=== PATIENT | female | born 1965 | race African-American/Black ===

== ENCOUNTER 2017-01-10 09:40 | Observation (INO) | payer OTHER ==
[~2017-01-10] VITALS: Ht 160 cm; Wt 90.0 kg
[~2017-01-10 09:40] MED LIST: ATEN-102 PO; CYMB30CA PO; GABA800T PO; GLUCTAB PO; HYDR-2768 PO; IBUP800 PO; LISI-366 PO; LISI-593 PO; LORA-474 PO; METF500 PO; PERC10TA27 PO; PHEN37.5 PO; PREN0.01 PO; SIMV20TA PO
[2017-01-10 09:43] VITALS: BP 188/104; PULSE 84; RESP 20; TEMP 98; O2SAT 97
--- NOTE | 2017-01-10 10:21 | PD ---
HPI Chief Complaint: Chest Pain Time Seen by Provider: 10:16 Travel History International Travel<30 days: No Contact w/Intl Traveler<30days: No Traveled to known affect area: No History of Present Illness HPI Is a 51 year-old woman presents to the emergency department complaining of chest pain. She otherwise is pretty healthy. She is a history of borderline diabetes and hypertension. She states starting last night and into today she was getting chest pain intermittently. It's been worse for the past 2 hours or so. She describes it syncope and feeling in the chest and somewhat pressure- like discomfort. States it feels better when she rubs her hold suggest. 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 No GI symptoms. She does have some shortness of breath when the pain comes on. No history of GERD or reflux, no gallbladder problems. No tobacco use. She had similar symptoms about a month or so ago but that resolved on their own. Last cardiac workup she thinks was around 2001 with a treadmill stress test. History Past Medical History Narrative Medical Borderline diabetes Hypertension Influenza Vaccination: Yes LMP: 2 months ago Menopausal: Yes : 3 Para: 3 Social History Alcohol Use: Yes (rare) Tobacco Use: No Allergies-Medications (Allergen,Severity, Reaction): Coded Allergies: No Known Allergies (Unverified , 01/10/17) Reported Meds & Prescriptions Reported Meds & Active Scripts Active Reported Atenolol 100 Mg Tab 100 Mg PO BID Lisinopril 40 Mg Tab 40 Mg PO DAILY Perico Aspirin EC Low Dose (Aspirin) 81 Mg Tabdr Metformin (Metformin HCl) 500 Mg Tab 500 Mg PO BIDPC With meals Gabapentin 800 Mg Tab 800 Mg PO TID Review of Systems Except as stated in HPI: all other systems reviewed are Neg Physical Exam Narrative GENERAL: Well-appearing 51 year-old woman, no acute distress. SKIN: Warm and dry. HEAD: Atraumatic. Normocephalic. EYES: Pupils equal and round. No scleral icterus. No injection or drainage. ENT: No nasal bleeding or discharge. Mucous membranes pink and moist. NECK: Trachea midline. No JVD. CARDIOVASCULAR: Regular rate and rhythm. No murmur appreciated. RESPIRATORY: No accessory muscle use. Clear to auscultation. Breath sounds equal bilaterally. GASTROINTESTINAL: Abdomen soft, non-tender, nondistended. Hepatic and splenic margins not palpable. No right upper quadrant tenderness. Negative Justice's. MUSCULOSKELETAL: No obvious deformities. No clubbing. No cyanosis. No edema. NEUROLOGICAL: Awake and alert. No obvious cranial nerve deficits. Motor grossly within normal limits. Normal speech. PSYCHIATRIC: Appropriate mood and affect; insight and judgment normal. Data Data Last Documented VS Vital Signs Date Time Temp Pulse Resp B/P Pulse Ox O2 Delivery O2 Flow Rate FiO2 01/10/17 12:00 67 16 143/84 97 Room Air 01/10/17 09:43 98.0 Orders Electrocardiogram (01/10/17 10:16) Complete Blood Count With Diff (01/10/17 10:16) Comprehensive Metabolic Panel (01/10/17 10:16) Magnesium (Mg) (01/10/17 10:16) Prothrombin Time / Inr (Pt) (01/10/17 10:16) Act Partial Throm Time (Ptt) (01/10/17 10:16) Troponin I (01/10/17 10:16) Lipase (01/10/17 10:16) Ecg Monitoring (01/10/17 10:16) Iv Access Insert/Monitor (01/10/17 10:16) Oximetry (01/10/17 10:16) Oxygen Administration (01/10/17 10:16) Aspirin Chew (Aspirin Chew) (01/10/17 10:30) Sodium Chloride 0.9% Flush (Ns Flush) (01/10/17 10:30) Sodium Chlorid 0.9% 500 Ml Inj (Ns 500 M (01/10/17 10:30) Chest, Pa & Lat (01/10/17 10:16) Labs Laboratory Tests Test 01/10/17 01/10/17 10:10 11:20 White Blood Count 10.2 TH/MM3 Red Blood Count 4.42 MIL/MM3 Hemoglobin 12.3 GM/DL Hematocrit 36.3 % Mean Corpuscular Volume 82.1 FL Mean Corpuscular Hemoglobin 27.9 PG Mean Corpuscular Hemoglobin 33.9 % Concent Red Cell Distribution Width 15.2 % Platelet Count 340 TH/MM3 Mean Platelet Volume 8.3 FL Neutrophils (%) (Auto) 66.3 % Lymphocytes (%) (Auto) 21.4 % Monocytes (%) (Auto) 10.1 % Eosinophils (%) (Auto) 1.6 % Basophils (%) (Auto) 0.6 % Neutrophils # (Auto) 6.8 TH/MM3 Lymphocytes # (Auto) 2.2 TH/MM3 Monocytes # (Auto) 1.0 TH/MM3 Eosinophils # (Auto) 0.2 TH/MM3 Basophils # (Auto) 0.1 TH/MM3 CBC Comment DIFF FINAL Differential Comment Sodium Level 137 MEQ/L Potassium Level 4.3 MEQ/L Chloride Level 104 MEQ/L Carbon Dioxide Level 23.3 MEQ/L Anion Gap 10 MEQ/L Blood Urea Nitrogen 10 MG/DL Creatinine 0.85 MG/DL Estimat Glomerular Filtration 85 ML/MIN Rate Random Glucose 93 MG/DL Calcium Level 8.9 MG/DL Magnesium Level 1.8 MG/DL Total Bilirubin 0.4 MG/DL Aspartate Amino Transf 19 U/L (AST/SGOT) Alanine Aminotransferase 21 U/L (ALT/SGPT) Alkaline Phosphatase 76 U/L Troponin I LESS THAN 0.02 NG/ML Total Protein 7.5 GM/DL Albumin 3.8 GM/DL Lipase 168 U/L Prothrombin Time 10.8 SEC Prothromb Time International 1.0 RATIO Ratio Activated Partial 23.1 SEC Thromboplast Time MDM Medical Decision Making Medical Screen Exam Complete: Yes Emergency Medical Condition: Yes Interpretation(s) My review of EKG: Normal sinus rhythm at a rate of 85, normal axis, normal intervals, no definite evidence of acute ischemia. LABS: CBC is unremarkable. CMP is unremarkable. Troponin is negative. Lipase is normal. Coags are unremarkable. Chest x-ray: No acute disease. Differential Diagnosis ACS, cholecystitis, pancreatitis, costochondritis, other Narrative Course Medical decision making 51 year-old woman presents to the emergency department complaining of chest pain , intermittent for the past 2 days. Not clearly exertional. Moderately concerning for ACS. EKG does not show any definite ischemia. We'll check labs , x-ray, likely recommend [id number] critic enzymes and further evaluation in the chest pain Center. No evidence of PE or dissection. Diagnosis Primary Impression: Chest pain Qualified Code: R07.1 - Chest pain on breathing Jean-Claude Odonnell MD Jan 10, 2017 10:21 Qualified Code: R07.1 - Chest pain on breathing Jean-Claude Odonnell MD Jan 10, 2017 10:21
[2017-01-10] MEDS ORDERED: ASPIRIN 81 MG CHEW TAB PO ONE (10:30)
[2017-01-10] MEDS ORDERED: SODIUM CHLORID 0.9% 500 ML INJ 500 ML IV ONE (10:30)
[2017-01-10] MEDS ORDERED: SODIUM CHLORIDE 0.9% FLUSH 5 ML FLUSH IVF PRN ×2 (10:30→12:45)
[2017-01-10 10:53] LABS: AUTOMATED NEUTROPHIL # 6.8 TH/MM3 (1.8-7.7); BASOPHIL # 0.1 TH/MM3 (0-0.2); BASOPHIL % 0.6 % (0.0-2.0); EOSINOPHIL # 0.2 TH/MM3 (0-0.4); EOSINOPHIL % 1.6 % (0.0-4.0); HEMATOCRIT 36.3 % (35.0-46.0); HEMO FLAGS DIFF FINAL; LYMPH % 21.4 % (9.0-44.0); LYMPHOCYTE # 2.2 TH/MM3 (1.0-4.8); MEAN CELL VOLUME 82.1 FL (80.0-100.0); MEAN CORPUSCULAR HEMOGLOBIN 27.9 PG (27.0-34.0); MEAN CORPUSCULAR HGB CONC 33.9 % (32.0-36.0); MONO % 10.1 % (0.0-8.0); NEUT % 66.3 % (16.0-70.0); PLATELET COUNT 340 TH/MM3 (150-450); RED BLOOD COUNT 4.42 MIL/MM3 (4.00-5.30); RED CELL DISTRIBUTION WIDTH 15.2 % (11.6-17.2); WHITE BLOOD COUNT 10.2 TH/MM3 (4.0-11.0)
[2017-01-10 11:00] VITALS: BP 151/67; PULSE 75; RESP 16; O2SAT 97
[2017-01-10 11:00] LABS: ANION GAP 10 MEQ/L (5-15); AST (GOT) 19 U/L (15-37); BICARBONATE 23.3 MEQ/L (21.0-32.0); BLOOD UREA NITROGEN 10 MG/DL (7-18); CHLORIDE 104 MEQ/L (98-107); GLOMERULAR FILTRATION RATE 85 ML/MIN (>89); MAGNESIUM 1.8 MG/DL (1.5-2.5); SODIUM (NA) 137 MEQ/L (136-145)
[2017-01-10 11:02] LABS: POTASSIUM 4.3 MEQ/L (3.5-5.1)
[2017-01-10 11:04] LABS: ALKALINE PHOSPHATASE 76 U/L (45-117); ALT (GPT) 21 U/L (10-53); TOTAL BILIRUBIN ADULT 0.4 MG/DL (0.2-1.0)
--- NOTE | 2017-01-10 11:15 | RADRPT ---
EXAM DATE/TIME: 01/10/2017 10:47 [facility] COMPARISON: No previous studies available for comparison. INDICATIONS : Chest pain for 2 days. MEDICAL HISTORY : Hypertension. SURGICAL HISTORY : None. ENCOUNTER: Initial ACUITY: 2 days PAIN SCORE: 6/10 LOCATION: Bilateral chest FINDINGS: PA and lateral views of the chest demonstrate the lungs to be symmetrically aerated without evidence of mass, infiltrate or effusion. The cardiomediastinal contours are unremarkable. Osseous structure s are intact. CONCLUSION: No acute disease. Tj Leigh MD FACR on January 10, 2017 at 11:13 Board Certified Radiologist. This report was verified electronically.
[2017-01-10] MEDS ORDERED: LISI40TA PO (11:18)
[2017-01-10] MEDS ORDERED: ASPI1TAB73 (11:18)
[2017-01-10] MEDS ORDERED: ATEN100T PO (11:18)
[2017-01-10] MEDS ORDERED: METF500T PO (11:18)
[2017-01-10] MEDS ORDERED: GABA800T PO (11:18)
[2017-01-10 11:47] LABS: PROTHROMBIN TIME - PATIENT 10.8 SEC (9.8-11.6)
[2017-01-10 11:53] LABS: APTT (PATIENT) 23.1 SEC (24.3-30.1)
[2017-01-10 12:00] VITALS: BP 143/84; PULSE 67; RESP 16; O2SAT 97
[2017-01-10 12:44] VITALS: O2SAT 97
[2017-01-10] MEDS ORDERED: ALPRAZolam 0.25 MG TAB PO PRN (12:45)
[2017-01-10] MEDS ORDERED: ACETAMINOPHEN/HYDROcodone 325 MG/7.5 MG TAB PO PRN (12:45)
[2017-01-10] MEDS ORDERED: ONDANSETRON HCL 4 MG/2 ML VIAL IV PRN (12:45)
[2017-01-10] MEDS ORDERED: ACETAMINOPHEN 500 MG CPLT PO PRN (12:45)
--- NOTE | 2017-01-10 12:51 | HHI.HP ---
HPI Primary Care Physician No Primary Care Physician Chief Complaint Right sided chest pain History of Present Illness This is a 51-year-old female that presents to ED with a complaint of right- sided chest pain that has been intermittent since last evening. She has found nothing to bring on the discomfort. They last for 2-3 minutes at a time. She has found that it feels better if she presses on the area for a while. She cannot recall any trauma. Denies history of CAD. Cannot recall prior stress testing. She has history of diabetes and hypertension. Denies family history of CAD. Denies recent illnesses. Review of Systems General: Patient denies fevers, chills recent, and recent travel HEENT: Patient denies headache, sore throat, difficulty swallowing. Cardiovascular: Has the chest discomfort as mentioned above. Denies sensation of heart beating rapidly or irregularly. Denies diaphoresis. No syncope. Respiratory: Denies shortness of breath or inspirational chest discomfort. Denies coughing wheezing or hemoptysis. GI: Patient denies nausea, vomiting, diarrhea, abdominal pain, bloody stools. Musculoskeletal: Patient denies joint pain or edema. Denies calf pain or edema. Neurovascular: Patient denies numbness, tingling, weakness in extremities. Denies headache. Endocrine: Denies polyuria and polydipsia. Hematologic: Denies easy bruising. Skin: Denies rash or itching. Past Family Social History Allergies: Coded Allergies: No Known Allergies (Unverified , 01/10/17) Past Medical History Hypertension and diabetes. Denies hyperlipidemia and CAD. Past Surgical History Noncontributory Reported Medications Reported Meds & Active Scripts Active Reported Atenolol 100 Mg Tab 100 Mg PO BID Lisinopril 40 Mg Tab 40 Mg PO DAILY Perico Aspirin EC Low Dose (Aspirin) 81 Mg Tabdr Metformin (Metformin HCl) 500 Mg Tab 500 Mg PO BIDPC With meals Gabapentin 800 Mg Tab 800 Mg PO TID Active Ordered Medications Current Medications Medications (Trade) Dose Ordered Sig/Anna Route Start Time Stop Time Status Last Admin (NS Flush) 2 ml UNSCH PRN IVF 01/10/17 10:30 Family History Denies family history of CAD. Social History Lifetime nonsmoker. Occasional alcohol. Denies illicit drugs. She is . 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 Physical Exam Vital Signs Vital Signs Date Time Temp Pulse Resp B/P Pulse Ox O2 Delivery O2 Flow Rate FiO2 01/10/17 12:00 67 16 143/84 97 Room Air 01/10/17 11:00 75 16 151/67 97 Room Air 01/10/17 09:46 86 15 95 Room Air 01/10/17 09:46 98 Room Air 01/10/17 09:43 98.0 84 20 188/104 97 Room Air Physical Exam GENERAL: This is a well-nourished, well-developed patient, in no apparent distress. Patient speaks in clear complete sentences. Patient is pleasant. HEENT: Head is atraumatic and normocephalic. Neck is supple without lymphadenopathy and trachea is midline. No JVD or carotid bruits. CARDIOVASCULAR: Regular rate and rhythm without murmurs, gallops, or rubs. RESPIRATORY: Clear to auscultation. Breath sounds equal bilaterally. No wheezes , rales, or rhonchi. Chest wall is tender just right of sternum. This is the discomfort that she has been having. No use of accessory muscles. GASTROINTESTINAL: Abdomen is nontender, nondistended. Abdomen soft. No obvious pulsatile mass or bruit. No CVA tenderness. Strong femoral pulses bilaterally. Normal bowel sounds in all quadrants. MUSCULOSKELETAL: Patient is moving upper and lower extremities freely. No calf tenderness or edema, no Homans sign. Strong pulses in upper and lower extremities. NEUROLOGICAL: Patient is alert and oriented. Cranial nerves 2-12 are grossly intact. No focal deficits and speech is clear. SKIN: No rash and turgor is normal. Laboratory Laboratory Tests Test 01/10/17 01/10/17 10:10 11:20 White Blood Count 10.2 Red Blood Count 4.42 Hemoglobin 12.3 Hematocrit 36.3 Mean Corpuscular Volume 82.1 Mean Corpuscular Hemoglobin 27.9 Mean Corpuscular Hemoglobin 33.9 Concent Red Cell Distribution Width 15.2 Platelet Count 340 Mean Platelet Volume 8.3 Neutrophils (%) (Auto) 66.3 Lymphocytes (%) (Auto) 21.4 Monocytes (%) (Auto) 10.1 Eosinophils (%) (Auto) 1.6 Basophils (%) (Auto) 0.6 Neutrophils # (Auto) 6.8 Lymphocytes # (Auto) 2.2 Monocytes # (Auto) 1.0 Eosinophils # (Auto) 0.2 Basophils # (Auto) 0.1 CBC Comment DIFF FINAL Differential Comment Sodium Level 137 Potassium Level 4.3 Chloride Level 104 Carbon Dioxide Level 23.3 Anion Gap 10 Blood Urea Nitrogen 10 Creatinine 0.85 Estimat Glomerular Filtration 85 Rate Random Glucose 93 Calcium Level 8.9 Magnesium Level 1.8 Total Bilirubin 0.4 Aspartate Amino Transf 19 (AST/SGOT) Alanine Aminotransferase 21 (ALT/SGPT) Alkaline Phosphatase 76 Troponin I LESS THAN 0.02 Total Protein 7.5 Albumin 3.8 Lipase 168 Prothrombin Time 10.8 Prothromb Time International 1.0 Ratio Activated Partial 23.1 Thromboplast Time Result Diagram: 01/10/17 1010 01/10/17 1010 Assessment and Plan Assessment and Plan * Chest pain: Patient's discomfort appears to be muscular but has multiple risk factors for CAD. She will be seen by Dr. Rico Zepeda of cardiology and the chest pain center and likely undergo a Harris protocol ETT. She would be discharged home if her stress test were to be nonischemic. Patient is agreeable to this plan. She is stable. Hima Jones Jan 10, 2017 12:51
--- NOTE | 2017-01-10 15:20 | HHI.DCPOC ---
Discharge Care Plan Diagnosis: (1) Chest pain (2) Hypertension (3) DM (diabetes mellitus) Goals to Promote Your Health * To prevent worsening of your condition and complications * To maintain your health at the optimal level Directions to Meet Your Goals Take your medications as prescribed Follow your dietary instruction Follow activity as directed Keep your appointments as scheduled Take your immunizations and boosters as scheduled If your symptoms worsen call your PCP, if no PCP go to Urgent Care Center or Emergency Room Smoking is Dangerous to Your Health. Avoid second hand smoke Call the 24-hour hour crisis hotline for domestic abuse at Hima Jones Jan 10, 2017 15:20
--- NOTE | 2017-01-10 15:55 | TR ---
Date Performed: 01/10/2017 Time Performed: 13:57:26 DOCTOR: Rico Zepeda DRUG LIST: CLINICAL HISTORY: CHEST PAIN REASON FOR TEST: REASON FOR ENDING: OBSERVATION: CONCLUSION: KHANG PROTOCOL. NO CP. TEST STOPPED AFTER EXCEEDING GOAL HR SECONDARY TO SOB AND LEG FATIGUE.Maximum QJ=327 % Max HR Achieved=88.0% Maximum IN=900/88 Total Exercise Time=9:30 COMMENTS: Patient exercised using the Khang protocol. No electrocardiographic changes were seen to suggest ischemia. Hemodynamic response to exercise was normal. No significant arrhythmia was prese nt.
[2017-01-10] MEDS ORDERED: GABAPENTIN 400 MG CAP PO SCH (18:00)
[2017-01-10] MEDS ORDERED: ATENOLOL 100 MG TAB PO SCH (21:00)
[2017-01-10] MEDS ORDERED: SODIUM CHLORIDE 0.9% FLUSH 5 ML FLUSH IVF SCH (21:00)
--- NOTE | 2017-01-10 21:46 | EKG ---
Date Performed: 01/10/2017 Time Performed: 09:49:31 PTAGE: 51 years EKG: Sinus rhythm VOLTAGE CRITERIA FOR LVH ABNORMAL ECG NO PREVIOUS TRACING DOCTOR: Boo Walker Interpretating Date/Time 05/16/2017 14:21:07
[2017-01-11] MEDS ORDERED: ASPIRIN 325 MG TAB PO SCH (09:00)
[2017-01-11] MEDS ORDERED: LISINOPRIL 20 MG TAB PO SCH (09:00)
[2017-02-09] MEDS ORDERED: GABA800T PO (16:16)
[2017-02-09] MEDS ORDERED: ATEN100T PO (16:16)
[2017-02-09] MEDS ORDERED: ASPI-110 PO (16:18)
[2017-02-09] MEDS ORDERED: SIMV20TA PO (16:19)
[2017-05-03] MEDS ORDERED: LISI40TA PO (12:09)
[2017-05-03] MEDS ORDERED: METF500T PO (12:09)
[2017-05-16] MEDS ORDERED: ZITHTAB PO (16:47)
[2017-05-16] MEDS ORDERED: LISI40TA PO (16:49)
[2017-05-16] MEDS ORDERED: METF500T PO (16:49)
[2017-05-16] MEDS ORDERED: ATEN100T PO (16:50)
[2017-05-16] MEDS ORDERED: CYCL1TAB29 PO (16:50)
[2017-05-16] MEDS ORDERED: GABA800T PO (16:50)
== END 2017-01-10 16:43 | disposition home or self-care (01) ==
LOC: NEPC 09:40 → NEDA 12:25 → MERGE 12:25 → NEPHCDU 14:09
PROVIDERS: ADMIT Internal Medicine Cardiovascular Disease; ATTEND Internal Medicine Cardiovascular Disease
DX: R07.1 Chest pain on breathing (principal); R06.02 Shortness of breath; I10 Essential (primary) hypertension; R73.03 Prediabetes; R55 Syncope and collapse; R94.31 Abnormal electrocardiogram [ECG] [EKG]
CPT/HCPCS: 71020; 80053; 83690; 83735; 84484; 85025; 85610; 85730; 93005; 93017; 96374; 99285; G0378; J7040

== ENCOUNTER 2017-02-28 15:13 | Emergency (ER) | payer OTHER ==
[~2017-02-28] VITALS: Ht 160 cm; Wt 94.0 kg
[~2017-02-28 15:13] MED LIST changes: +ASPI-110 PO; +ASPI1TAB73; -ATEN-102 PO; +ATEN100T PO; -CYMB30CA PO; -HYDR-2768 PO; -IBUP800 PO; -LISI-593 PO; +LISI40TA PO; -LORA-474 PO; -METF500 PO; +METF500T PO; -PERC10TA27 PO; -PHEN37.5 PO; -PREN0.01 PO
[2017-02-28 15:29] VITALS: BP 118/79; PULSE 75; RESP 16; TEMP 98.3; O2SAT 95
[2017-02-28] MEDS ORDERED: LISI40TA PO (15:35)
[2017-02-28] MEDS ORDERED: ATEN100T PO (15:35)
[2017-02-28] MEDS ORDERED: METF500T PO (15:35)
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
[2017-02-28] MEDS ORDERED: CYCL1TAB29 PO (16:02)
[2017-05-03] MEDS ORDERED: METF500T PO (12:09)
[2017-05-03] MEDS ORDERED: LISI40TA PO (12:09)
[2017-05-16] MEDS ORDERED: ZITHTAB PO (16:47)
[2017-05-16] MEDS ORDERED: LISI40TA PO (16:49)
[2017-05-16] MEDS ORDERED: METF500T PO (16:49)
[2017-05-16] MEDS ORDERED: CYCL1TAB29 PO (16:50)
[2017-05-16] MEDS ORDERED: GABA800T PO (16:50)
[2017-05-16] MEDS ORDERED: ATEN100T PO (16:50)
== END 2017-02-28 16:15 | disposition home or self-care (01) ==
LOC: PHEFT 15:13
DX: T14.8 Other injury of unspecified body region (principal); M79.1 Myalgia; M54.2 Cervicalgia; M79.652 Pain in left thigh; I10 Essential (primary) hypertension; E11.9 Type 2 diabetes mellitus without complications; X50.0XXA Overexertion from strenuous movement or load, initial encounter; Y93.F1 Activity, caregiving, bathing; Y92.002 Bathroom of unspecified non-institutional (private) residence as the place of occurrence of the external cause; Y99.0 Civilian activity done for income or pay
CPT/HCPCS: 99283

== ENCOUNTER → 2017-05-09 | Outpatient (CLI) | payer OTHER ==
[~2017-05-09] MED LIST changes: -ASPI-110 PO; +CYCL1TAB29 PO; -GLUCTAB PO; -LISI-366 PO; -SIMV20TA PO; +ZITHTAB PO
[2017-05-09 09:20] LABS: ALKALINE PHOSPHATASE 81 U/L (45-117); ALT (GPT) 23 U/L (10-53); HDL CHOLESTEROL 44.1 MG/DL (40.0-60.0); LDL CHOLESTEROL 32 MG/DL (0-99); TOTAL BILIRUBIN ADULT 0.6 MG/DL (0.2-1.0)
[2017-05-09 09:26] LABS: ANION GAP 10 MEQ/L (5-15); AST (GOT) 22 U/L (15-37); BICARBONATE 24.5 MEQ/L (21.0-32.0); BLOOD UREA NITROGEN 14 MG/DL (7-18); CHLORIDE 106 MEQ/L (98-107); GLOMERULAR FILTRATION RATE 95 ML/MIN (>89); GLUCOSE,FASTING 99 MG/DL (74-99); SODIUM (NA) 140 MEQ/L (136-145)
[2017-05-09 10:23] LABS: MICRO ALBUMIN RANDOM URINE RAW 63.3 MG/L (0.0-30.0)
[2017-05-09 16:52] LABS: HEMOGLOBIN A1a 1.2 %; HEMOGLOBIN A1b 1.9 %; HEMOGLOBIN Ao 84.9 %; HEMOGLOBIN LA1C 1.8 %; HEMOGLOBIN P3 3.7 %
== END ==
LOC: CLAB 08:05
PROVIDERS: ATTEND Family Medicine
DX: E11.9 Type 2 diabetes mellitus without complications (principal)
CPT/HCPCS: 36415; 80053; 80061; 82043; 83036

== ENCOUNTER → 2017-05-10 | Day surgery (SDC) | payer OTHER ==
[~2017-05-10] MED LIST changes: +LACTATED RINGER'S 1000 ML INJ 1,000 ML ONE; +PROPOFOL 200 MG/20 ML AMP IV ONE; -ZITHTAB PO
--- NOTE | 2017-05-10 14:40 | GIPROC ---
[facility] [address] [place], [address] COLONOSCOPY PROCEDURE REPORT EXAM DATE: 05/10/2017 PATIENT NAME: Debi Lam MR #: [id number] BIRTHDATE: 1965 ENDOSCOPIST: Eduardo Martínez MD ORDER #: [id number] STRATEGIC DEBRIEFING OFFICER: STATUS: outpatient INDICATIONS: The patient is a 52 yr old female here for a colonoscopy due to average risk patient for colon cancer PROCEDURE PERFORMED: Colonoscopy, screening MEDICATIONS: None and Per Anesthesia. PREP QUALITY: fair ESTIMATED BLOOD LOSS: None CONSENT: The patient understands the risks and benefits of the procedure and understands that these risks include, but are not limited to: sedation, allergic reaction, infection, perforation and/or bleeding. Alternative means of evaluation and treatment include, among others: physical exam, x-rays, and/or surgical intervention. The patient elects to proceed with this endoscopic procedure. medical equipment was checked for proper function. Hand hygiene and appropriate measures for infection prevention was taken. After the risks, benefits and alternatives of the procedure were thoroughly explained, Informed consent was verified, confirmed and timeout was successfully executed by the treatment team. A digital exam revealed no abnormalities of the rectum The [id number] ([id number]) endoscope was introduced through the anus and advanced to the cecum, which was identified by both the appendix and ileocecal valve. The instrument was then slowly withdrawn as the colon was fully examined. COLON FINDINGS: The colonic mucosa appeared normal. Moderate diverticulosis was noted in the sigmoid colon. Retroflexed views revealed no abnormalities The scope was then completely withdrawn from the patient and the procedure terminated. ADVERSE EVENTS: There were no complications. IMPRESSIONS: 1. The colonic mucosa appeared normal 2. Moderate diverticulosis was noted in the sigmoid colon 3. Retroflexed views revealed no abnormalities 4. Revealed no abnormalities of the rectum RECOMMENDATIONS: 1. Yearly hemoccult 2. High fiber diet RECALL: Return 5 years Colonoscopy Eduardo Martínez MD eSigned: Eduardo Martínez MD 05/10/2017 2:39 PM cc:
== END | disposition home or self-care (01) ==
LOC: ESDC 11:35
PROVIDERS: ATTEND Hospitalist
DX: Z12.11 Encounter for screening for malignant neoplasm of colon (principal); K57.90 Diverticulosis of intestine, part unspecified, without perforation or abscess without bleeding
CPT/HCPCS: 00810; 45378; J7120

== ENCOUNTER → 2017-06-22 | Outpatient (CLI) | payer OTHER ==
[~2017-06-22] MED LIST changes: -LACTATED RINGER'S 1000 ML INJ 1,000 ML ONE; -PROPOFOL 200 MG/20 ML AMP IV ONE; +ZITHTAB PO
[2017-06-22 15:49] LABS: RHEUMATOID FACTOR TRIGGER LESS THAN 10.0 IU/ML (0.0-14.9)
== END ==
LOC: CLAB 14:59
PROVIDERS: ATTEND Family Medicine
DX: M13.0 Polyarthritis, unspecified (principal)
CPT/HCPCS: 36415; 86038; 86430

== ENCOUNTER → 2017-09-27 | Day surgery (SDC) | payer OTHER ==
[~2017-09-27] VITALS: Ht 157.5 cm; Wt 90.5 kg
[~2017-09-27] MED LIST changes: +BUPIVACAINE HCL PF 0.5% 30 ML VIAL ONE; +CARPAL TUNNEL W1 MIS; +CEPH-460 PO; +CHLORHEXIDINE GLUCONATE 2 % 1 PACK (2 CLOTHS) TOPICAL PRN; +CYCL10TA PO; -CYCL1TAB29 PO; +IBUP1TAB7 PO; +INSULIN HUMAN REGULAR 1,000 UNITS/10 ML VIAL SQ PRN; +LACTATED RINGER'S 1000 ML IV PRN; +LIDOCAINE HCL 2% 50 ML VIAL ONE; +METO100T PO; +METOPROLOL TARTRATE 25 MG TAB PO PRN; +MIDAZOLAM HCL 2 MG/2 ML VIAL ONE; +NEOMYCIN/POLYMYXIN 1 ML G.U. IRRIGANT ONE; +NORC5TAB PO; +POVIDONE IODINE 5% (ANTISEPSIS KIT) 4 APPLICATIONS EACH NARE PRN; +SODIUM CHLORID 0.9% 500 ML IV PRN; +TRAM50TA PO; +TRIAMCINOLONE ACETONIDE 40 MG/ML VIAL ONE; -ZITHTAB PO; +ceFAZolin 1,000 MG/NS 100 ML IV SCH
[2017-09-27 15:00] VITALS: BP 122/75; PULSE 72; RESP 16; TEMP 97.8; O2SAT 99
--- NOTE | 2017-09-28 08:28 | MP ---
cc: MAK BROOKS III, M.D. DATE OF SURGERY: 09/27/2017 PREOPERATIVE DIAGNOSIS Bilateral severe carpal tunnel syndrome. POSTOPERATIVE DIAGNOSIS Bilateral severe carpal tunnel syndrome. PROCEDURE 1. Right open carpal tunnel release. 2. Left carpal tunnel steroid injection. SURGEON Mak Brooks III, MD DETAILS OF PROCEDURE The patient was brought to the operating room and placed supine on the operating table. After the correct site and side of surgery were verified by members of each team in the room multiple times including the patient and myself and after an adequate preoperative timeout and IV sedation was achieved, the right upper extremity was prepped and draped in traditional sterile surgical fashion. A 50/50 mixture of 2% plain lidocaine 0.5% Marcaine was infiltrated into the skin and subcutaneous tissue into the carpal tunnel. The limb was exsanguinated. A highly placed well-padded axillary tourniquet was inflated to 200 mmHg for approximately 11 minutes. A longitudinally oriented incision within a skin crease at the base of the palm was made and carried down through skin and subcutaneous tissue. The palmar fascia was retracted in opposite directions. The transverse carpal ligament was identified and divided in its entirety from its proximal most to its distal most extents. It was very thick, very redundant, and the median nerve had a noticeable rebound upon completion. There were no other mass effects or other anatomic abnormalities identified. Thorough irrigation with saline was performed for one liter's worth and then the skin edges were re-approximated using running 4-0 nylon suture. The hand and arm were thoroughly cleansed and dried. Betadine and Adaptic dressing was applied atop the wound followed by a bulky soft dressing and a circumferential one to follow in the usual manner. The axillary tourniquet was released. The hand and all the fingers became immediately soft, pink and warm, and had brisk capillary refill of less than two seconds. Hemostasis was present. The left carpal tunnel was then sterilely injected in the usual fashion with a 2:1 mixture of 2% plain lidocaine and Kenalog 40 mg/ml for a total of 3 cc of injectate. Pressure was held and a sterile band-aid was applied. The patient tolerated the procedure well. She was awakened from anesthesia and transported to the post-anesthesia care unit awake and in stable condition at the end of the case. Sponge, needle and instrument counts were correct at the end of the case as reported by the nurses in the room. MD CASTRO Chandler III/IDA /2:39 PM /8:04 AM
== END | disposition home or self-care (01) ==
LOC: PHSDC 12:14
PROVIDERS: ATTEND Orthopaedic Surgery Hand Surgery
DX: G56.03 Carpal tunnel syndrome, bilateral upper limbs (principal)
CPT/HCPCS: 01810; 20526; 64721; J0690; J2250; J3010; J3301; J7120

== ENCOUNTER 2017-12-24 10:44 | Emergency (ER) | payer OTHER ==
[~2017-12-24] VITALS: Ht 160 cm; Wt 90.0 kg
[~2017-12-24 10:44] MED LIST changes: -ASPI1TAB73; -BUPIVACAINE HCL PF 0.5% 30 ML VIAL ONE; -CARPAL TUNNEL W1 MIS; -CEPH-460 PO; -CHLORHEXIDINE GLUCONATE 2 % 1 PACK (2 CLOTHS) TOPICAL PRN; -CYCL10TA PO; -INSULIN HUMAN REGULAR 1,000 UNITS/10 ML VIAL SQ PRN; -LACTATED RINGER'S 1000 ML IV PRN; -LIDOCAINE HCL 2% 50 ML VIAL ONE; -METO100T PO; -METOPROLOL TARTRATE 25 MG TAB PO PRN; -MIDAZOLAM HCL 2 MG/2 ML VIAL ONE; -NEOMYCIN/POLYMYXIN 1 ML G.U. IRRIGANT ONE; -NORC5TAB PO; -POVIDONE IODINE 5% (ANTISEPSIS KIT) 4 APPLICATIONS EACH NARE PRN; -SODIUM CHLORID 0.9% 500 ML IV PRN; -TRIAMCINOLONE ACETONIDE 40 MG/ML VIAL ONE; -ceFAZolin 1,000 MG/NS 100 ML IV SCH
[2017-12-24 10:46] VITALS: BP 185/89; PULSE 77; RESP 18; TEMP 98.4; O2SAT 98
[2017-12-24 11:48] LABS: BASOPHIL # 0.1 TH/MM3 (0-0.2); BASOPHIL % 0.7 % (0.0-2.0); EOSINOPHIL # 0.3 TH/MM3 (0-0.4); EOSINOPHIL % 3.2 % (0.0-4.0); HEMATOCRIT 39.9 % (35.0-46.0); HEMOGLOBIN 13.2 GM/DL (11.6-15.3); LYMPH % 30.3 % (9.0-44.0); LYMPHOCYTE # 2.8 TH/MM3 (1.0-4.8); MEAN PLATELET VOLUME 7.4 FL (7.0-11.0); MONO % 11.4 % (0.0-8.0); NEUT % 54.4 % (16.0-70.0); PLATELET COUNT 387 TH/MM3 (150-450); RED CELL DISTRIBUTION WIDTH 14.1 % (11.6-17.2); WHITE BLOOD COUNT 9.2 TH/MM3 (4.0-11.0)
[2017-12-24 11:57] LABS: BICARBONATE 27.7 MEQ/L (21.0-32.0); BLOOD UREA NITROGEN 12 MG/DL (7-18); CALCIUM 9.6 MG/DL (8.5-10.1); CHLORIDE 107 MEQ/L (98-107); CREATININE 0.77 MG/DL (0.50-1.00); GLOMERULAR FILTRATION RATE 95 ML/MIN (>89); GLUCOSE,RANDOM 93 MG/DL (74-106); SODIUM (NA) 138 MEQ/L (136-145)
[2017-12-24 12:01] LABS: TROPONIN I LESS THAN 0.02 NG/ML (0.02-0.05)
[2017-12-24 12:21] LABS: LYMPHOCYTES 27 % (9-44); MONOCYTES 12 % (0-8); NEUTROPHIL # MANUAL DIFF 5.3 TH/MM3 (1.8-7.7); POLYS (SEG NEUTROPHILS) 58 % (16-70)
--- NOTE | 2017-12-24 12:53 | RADRPT ---
EXAM DATE/TIME: 12/24/2017 11:28 [facility] COMPARISON: CHEST PA & LAT, January 10, 2017, 10:47. INDICATIONS : Chest pain, tightness in chest and left hand for one week, no shortness of breath MEDICAL HISTORY : Hypertension. SURGICAL HISTORY : None. ENCOUNTER: Initial ACUITY: 1 week PAIN SCORE: 10/10 LOCATION: Bilateral chest FINDINGS: PA and lateral views of the chest demonstrate the lungs to be symmetrically aerated without evidence of mass, infiltrate or effusion. The cardiomediastinal contours are unremarkable. Degenerative garber es are noted throughout the thoracolumbar spine. CONCLUSION: No acute disease. Aram Tapia MD on December 24, 2017 at 12:51 Board Certified Radiologist. This report was verified electronically.
[2017-12-24] MEDS ORDERED: GABA800T PO (13:07)
[2017-12-24 13:08] VITALS: RESP 16; O2SAT 99
[2017-12-24 13:15] VITALS: BP 148/87; PULSE 68; RESP 16; TEMP 97.7; O2SAT 99
--- NOTE | 2017-12-24 13:26 | PD ---
HPI Chief Complaint: Chest Pain Time Seen by Provider: 13:09 Travel History International Travel<30 days: No Contact w/Intl Traveler<30days: No Traveled to known affect area: No History of Present Illness HPI 52-year-old female presents to emergency department concerned about midsternal chest pain that started at 930 this morning and lasted for seconds. States she has had similar episodes 1-2 times per day, for 1 week. Patient states there is no radiation of pain and is mild in nature. Patient states rest decreases her pain but nothing exacerbates her pain. Patient denies shortness of breath, nausea, vomiting associated with this chest pain. Patient denies history of cardiac disease. Says she has a history of high blood pressure and borderline diabetes. Patient denies history of hyperlipidemia or family history of heart attacks or strokes. Patient believes that this may be related to her heart or reflux. PFSH Past Medical History Hx Anticoagulant Therapy: No Cancer: No Cardiovascular Problems: Yes (HYPERLIPIDEMIA) Chemotherapy: No Diabetes: Yes (PRE DIABETIC) Patient Takes Glucophage: Yes Diminished Hearing: No Endocrine: No Genitourinary: No Hepatitis: No Hiatal Hernia: No Hypertension: Yes Immune Disorder: No Musculoskeletal: Yes (LEFT TENDON ACHILLES RUPTURE) Neurologic: No Psychiatric: No Reproductive: No Respiratory: No Thyroid Disease: No Tetanus Vaccination: > 5 Years Influenza Vaccination: Yes ?: Not Menopausal: No : 3 Para: 3 Past Surgical History Abdominal Surgery: No AICD: No Cardiac Surgery: No Section: Yes (x2) Ear Surgery: No Endocrine Surgery: No Eye Surgery: No Genitourinary Surgery: No Gynecologic Surgery: Yes ( X 2) Hysterectomy: No Joint Replacement: No Oral Surgery: No Pacemaker: No Thoracic Surgery: No Other Surgery: Yes Social History Alcohol Use: No Tobacco Use: No Substance Use: No Allergies-Medications (Allergen,Severity, Reaction): Coded Allergies: No Known Allergies (Verified Allergy, Unknown, 12/24/17) Reported Meds & Prescriptions Reported Meds & Active Scripts Active Ibuprofen 800 Mg Tab 800 Mg PO Q12HR PRN Tramadol (Tramadol HCl) 50 Mg Tab 50 Mg PO Q6H PRN Atenolol 100 Mg Tab 100 Mg PO DAILY Metformin (Metformin HCl) 500 Mg Tab 500 Mg PO DAILY With a meal Lisinopril 40 Mg Tab 40 Mg PO DAILY Reported Gabapentin 800 Mg Tab 800 Mg PO HS Review of Systems Except as stated in HPI: all other systems reviewed are Neg Physical Exam Narrative GENERAL: Well-nourished in no apparent distress SKIN: Focused skin assessment warm/dry. HEAD: Atraumatic. Normocephalic. EYES: Pupils equal and round. No scleral icterus. No injection or drainage. ENT: No nasal bleeding or discharge. Mucous membranes pink and moist. NECK: Trachea midline. No JVD. No lymphadenopathy CARDIOVASCULAR: Regular rate and rhythm. No murmur appreciated. RESPIRATORY: No accessory muscle use. Clear to auscultation. Breath sounds equal bilaterally. No tenderness palpation of chest wall GASTROINTESTINAL: Abdomen soft, non-tender, nondistended. Hepatic and splenic margins not palpable. MUSCULOSKELETAL: No obvious deformities. No clubbing. No cyanosis. No edema. NEUROLOGICAL: Awake and alert. No obvious cranial nerve deficits. Motor grossly within normal limits. Normal speech. PSYCHIATRIC: Appropriate mood and affect; insight and judgment normal. Data Data Last Documented VS Vital Signs Date Time Temp Pulse Resp B/P (MAP) Pulse Ox O2 Delivery O2 Flow Rate FiO2 12/24/17 14:29 97.7 72 16 135/86 (102) 99 12/24/17 13:15 Room Air Orders Orders Electrocardiogram (12/24/17 10:54) Complete Blood Count With Diff (12/24/17 10:54) Basic Metabolic Panel (Bmp) (12/24/17 10:54) Ckmb (Isoenzyme) Profile (12/24/17 10:54) Troponin I (12/24/17 10:54) Iv Access Insert/Monitor (12/24/17 10:54) Ecg Monitoring (12/24/17 10:54) Oxygen Administration (12/24/17 10:54) Oximetry (12/24/17 10:54) Chest, Pa & Lat (12/24/17 10:54) CKMB (12/24/17 11:14) CKMB% (12/24/17 11:14) Ed Discharge Order (12/24/17 14:24) Labs Laboratory Tests Test 12/24/17 11:14 White Blood Count 9.2 TH/MM3 Red Blood Count 4.70 MIL/MM3 Hemoglobin 13.2 GM/DL Hematocrit 39.9 % Mean Corpuscular Volume 85.0 FL Mean Corpuscular Hemoglobin 28.0 PG Mean Corpuscular Hemoglobin Concent 33.0 % Red Cell Distribution Width 14.1 % Platelet Count 387 TH/MM3 Mean Platelet Volume 7.4 FL Neutrophils (%) (Auto) 54.4 % Lymphocytes (%) (Auto) 30.3 % Monocytes (%) (Auto) 11.4 % Eosinophils (%) (Auto) 3.2 % Basophils (%) (Auto) 0.7 % Neutrophils # (Auto) 5.0 TH/MM3 Lymphocytes # (Auto) 2.8 TH/MM3 Monocytes # (Auto) 1.0 TH/MM3 Eosinophils # (Auto) 0.3 TH/MM3 Basophils # (Auto) 0.1 TH/MM3 CBC Comment AUTO DIFF Differential Total Cells Counted 100 Neutrophils % (Manual) 58 % Lymphocytes % 27 % Monocytes % 12 % Eosinophils % 3 % Neutrophils # (Manual) 5.3 TH/MM3 Differential Comment FINAL DIFF MANUAL Platelet Estimate NORMAL Platelet Morphology Comment NORMAL Blood Urea Nitrogen 12 MG/DL Creatinine 0.77 MG/DL Random Glucose 93 MG/DL Calcium Level 9.6 MG/DL Sodium Level 138 MEQ/L Potassium Level 4.3 MEQ/L Chloride Level 107 MEQ/L Carbon Dioxide Level 27.7 MEQ/L Anion Gap 3 MEQ/L Estimat Glomerular Filtration Rate 95 ML/MIN Total Creatine Kinase 227 U/L Creatine Kinase MB 1.7 NG/ML Creatine Kinase MB % 0.7 % Troponin I LESS THAN 0.02 NG/ML MDM Medical Decision Making Medical Screen Exam Complete: Yes Emergency Medical Condition: Yes Differential Diagnosis Atypical chest pain, angina, unstable angina Narrative Course 52-year-old female presents to emergency department concerned about midsternal chest pain that started at 930 this morning and lasted for seconds. States she has had similar episodes 1-2 times per day, for 1 week. Patient states there is no radiation of pain and is mild in nature. Patient states rest decreases her pain but nothing exacerbates her pain. Patient denies shortness of breath, nausea, vomiting associated with this chest pain. Patient denies history of cardiac disease. Says she has a history of high blood pressure, GERD, and borderline diabetes. Patient denies history of hyperlipidemia or family history of heart attacks or strokes. Patient believes that this may be related to her heart or reflux. She works for [employer]. Vital signs stable. Exam findings essentially unremarkable. Laboratory Tests Test 12/24/17 11:14 White Blood Count 9.2 TH/MM3 Red Blood Count 4.70 MIL/MM3 Hemoglobin 13.2 GM/DL Hematocrit 39.9 % Mean Corpuscular Volume 85.0 FL Mean Corpuscular Hemoglobin 28.0 PG Mean Corpuscular Hemoglobin Concent 33.0 % Red Cell Distribution Width 14.1 % Platelet Count 387 TH/MM3 Mean Platelet Volume 7.4 FL Neutrophils (%) (Auto) 54.4 % Lymphocytes (%) (Auto) 30.3 % Monocytes (%) (Auto) 11.4 % Eosinophils (%) (Auto) 3.2 % Basophils (%) (Auto) 0.7 % Neutrophils # (Auto) 5.0 TH/MM3 Lymphocytes # (Auto) 2.8 TH/MM3 Monocytes # (Auto) 1.0 TH/MM3 Eosinophils # (Auto) 0.3 TH/MM3 Basophils # (Auto) 0.1 TH/MM3 CBC Comment AUTO DIFF Differential Total Cells Counted 100 Neutrophils % (Manual) 58 % Lymphocytes % 27 % Monocytes % 12 % Eosinophils % 3 % Neutrophils # (Manual) 5.3 TH/MM3 Differential Comment FINAL DIFF MANUAL Platelet Estimate NORMAL Platelet Morphology Comment NORMAL Blood Urea Nitrogen 12 MG/DL Creatinine 0.77 MG/DL Random Glucose 93 MG/DL Calcium Level 9.6 MG/DL Sodium Level 138 MEQ/L Potassium Level 4.3 MEQ/L Chloride Level 107 MEQ/L Carbon Dioxide Level 27.7 MEQ/L Anion Gap 3 MEQ/L Estimat Glomerular Filtration Rate 95 ML/MIN Total Creatine Kinase 227 U/L Creatine Kinase MB 1.7 NG/ML Creatine Kinase MB % 0.7 % Troponin I LESS THAN 0.02 NG/ML Last Impressions Chest X-Ray 12/24/17 1054 Signed Impressions: Service Date/Time: Sunday, December 24, 2017 11:28 - CONCLUSION: No acute disease. Aram Tapia MD EKG demonstrates sinus rhythm without ST elevation or depression. Similar to previous tracings 1 year ago. Patient also had a stress test 1 year ago at this hospital which was normal. Patient's symptoms have been going on for approximately 1 week and is pain free now. Patient understands the risk versus benefit of staying at the hospital versus going home. I asked pt if she would like to stay and be evaluated further however, she did not. I strongly advised the patient to follow-up with cardiology. States understanding and will comply. Pt remained chest pain free in the ED today. She should follow up with her PCP this week. Diagnosis Primary Impression: Chest pain, atypical Referrals: [facility] Additional Instructions: Follow up with a [facility] within 1-2 weeks. If your pain worsens or persist, return to the ED immediately. Follow up with your PCP this week. Disposition: 01 DISCHARGE HOME Condition: Stable Esme Ambrosio Dec 24, 2017 13:26
[2017-12-24 14:29] VITALS: BP 135/86; TEMP 97.7
--- NOTE | 2017-12-24 21:53 | EKG ---
Date Performed: 12/24/2017 Time Performed: 11:12:50 PTAGE: 52 years EKG: Sinus rhythm MINIMAL VOLTAGE CRITERIA FOR LVH, CONSIDER NORMAL VARIANT BORDERLINE ECG PREVIOUS TRACING : 01/10/2017 09.49 DOCTOR: Mannie Merritt Interpretating Date/Time 12/24/2017 21:51:04
== END 2017-12-24 14:36 | disposition home or self-care (01) ==
LOC: NEPC 10:44
DX: R07.89 Other chest pain (principal); E11.9 Type 2 diabetes mellitus without complications; I10 Essential (primary) hypertension; Z79.84 Long term (current) use of oral hypoglycemic drugs
CPT/HCPCS: 71046; 80048; 82550; 82552; 84484; 85007; 85027; 93005

== ENCOUNTER → 2018-01-30 | Day surgery (SDC) | payer OTHER ==
[~2018-01-30] VITALS: Ht 160 cm; Wt 90.0 kg
[~2018-01-30] MED LIST changes: +BUPIVACAINE HCL PF 0.5% 30 ML VIAL ONE; +CEPH-460 PO; +CHLORHEXIDINE GLUCONATE 2 % 1 PACK (2 CLOTHS) TOPICAL PRN; +FAMOTIDINE 20 MG/2 ML VIAL ONE; +HYDR-3288 PO; +LACTATED RINGER'S 1000 ML IV PRN; +LIDOCAINE HCL 1% PF 5 ML SYRINGE OTHER ONE; +LIDOCAINE HCL 2% 50 ML VIAL ONE; +METOPROLOL TARTRATE 25 MG TAB PO PRN; +MIDAZOLAM HCL 2 MG/2 ML VIAL ONE; +NEOMYCIN/POLYMYXIN 1 ML G.U. IRRIGANT ONE; +POVIDONE IODINE 5% (ANTISEPSIS KIT) 4 APPLICATIONS EACH NARE PRN; +PROPOFOL 200 MG/20 ML AMP IV ONE; +SODIUM CHLORID 0.9% 500 ML IV PRN; +ceFAZolin 1,000 MG/NS 100 ML IV SCH
[2018-01-30 11:05] VITALS: TEMP 98
--- NOTE | 2018-01-30 11:37 | MP ---
cc: Mak Brooks MD DATE OF OPERATION: 01/30/2018 PREOPERATIVE DIAGNOSIS: Left carpal tunnel syndrome. PROCEDURE: Left open carpal tunnel release. SURGEON: Mak Brooks III, MD PROCEDURE: The patient was brought to the operating room, placed supine on the operating table. After the correct site and side of surgery were verified by members of each team in the room multiple times including the patient and myself, anesthetic and preoperative markings, preoperative written consent was verified by everyone, after adequate preoperative time-out was performed to everyone's satisfaction, after adequate IV sedation had been achieved, the left upper extremity was prepped and draped in traditional sterile surgical fashion. A 50/50 mixture of 2% plain lidocaine and 0.5% plain Marcaine was infiltrated into the skin and subcutaneous tissue at the base of the palm and into the carpal tunnel. The limb was exsanguinated with an Walter wrap and a highly placed well-padded axillary tourniquet was inflated to 200 mmHg for a total of 9 minutes. A longitudinally oriented incision at the base of the palm was made and carried down through the skin and subcutaneous tissue. Blunt dissection was performed. The palmar fascia was retracted in opposite directions. The transverse carpal ligament was identified and divided at the midline from its proximal-most to its distal-most extents, completely opening the carpal tunnel and freeing all the contents. There was a moderately hypertrophic tenosynovium. There was no other evidence of any anatomic abnormality and no evidence of any mass effect. Thorough irrigation was performed using 1 liter's worth of saline and the skin edges reapproximated using running and interrupted 4-0 nylon suture. The hand and arm were thoroughly cleansed and dried, Betadine and Adaptic dressings on top of the wounds, bulky soft dressing. The axillary tourniquet was released after 9 minutes and the hand and all the fingers became immediately soft, pink and warm and had brisk capillary refill of less than 2 seconds. Circumferential Walter wrap was applied in the usual fashion. The patient was awakened from anesthesia and transported to the post-anesthesia care unit awake, in stable condition at the end of the case. Sponge, needle and instrument counts were correct at the end of the case as reported by the nurses in the room. MD STANLEY Chandler , 11:13 AM , 11:35 AM
[2018-01-30 11:55] VITALS: BP 140/91; PULSE 72; RESP 14; O2SAT 100
== END | disposition home or self-care (01) ==
LOC: PHSDC 09:21
PROVIDERS: ATTEND Orthopaedic Surgery Hand Surgery
DX: G56.02 Carpal tunnel syndrome, left upper limb (principal)
CPT/HCPCS: 01810; 64721; J0690; J2250; J3010; J7120